=== PATIENT | female | born 1960 | race Asian ===

== ENCOUNTER 2017-03-01 13:12 | Emergency (ER) | payer OTHER ==
[~2017-03-01] VITALS: Ht 152.4 cm; Wt 80.0 kg
[2017-03-01 13:16] VITALS: Ht 152.4 cm; Wt 80.0 kg
[2017-03-01] MEDS ORDERED: ASPIRIN 325 MG TAB PO STA (17:38)
[2017-03-01] MEDS ORDERED: LIDOCAINE/MYLANTA 40 ML BTL PO STA (17:38)
[2017-03-01 18:31] LABS: BASOPHIL # 0.1 10^3/ul (0.0-0.1); BASOPHILS % 0.6 % (0.0-2.0); EOSINOPHILS # 0.2 10^3/ul (0.0-0.5); EOSINOPHILS % 2.1 % (0.0-7.0); HEMATOCRIT 38.9 % (37.0-47.0); HEMOGLOBIN 12.9 g/dl (12.0-16.0); LYMPHOCYTES # 4.5 10^3/ul (0.8-2.9); LYMPHOCYTES % 42.7 % (15.0-51.0); MEAN CORPUSCULAR HEMOGLOBIN 28.5 pg (29.0-33.0); MEAN CORPUSCULAR HGB CONC 33.2 g/dl (32.0-37.0); MEAN CORPUSCULAR VOLUME 86.1 fl (82.0-101.0); MEAN PLATELET VOLUME 9.8 fl (7.4-10.4); MONOCYTE # 0.7 10^3/ul (0.3-0.9); MONOCYTES % 6.3 % (0.0-11.0); NEUTROPHILS % 47.9 % (39.0-77.0); PLATELET COUNT 322 10^3/UL (140-415); RED BLOOD COUNT 4.52 10^6/ul (4.20-5.40); WHITE BLOOD COUNT 10.4 10^3/ul (4.8-10.8)
--- NOTE | 2017-03-01 18:34 | RADRPT ---
PROCEDURE: XR Chest. CLINICAL INDICATION: Chest pain. TECHNIQUE: Single frontal view. COMPARISON: None. FINDINGS: The lungs are clear. The heart size is normal. There is no pleural effusion. There is no pneumothorax. IMPRESSION: 1. Normal chest radiograph. RPTAT: QQ .Reed Perez MD, Date Time Electronically viewed and signed by .Reed Perez MD, on 03/01/2017 18:33 .R/
[2017-03-01] MEDS ORDERED: METF1000 PO (18:39)
[2017-03-01] MEDS ORDERED: LOSA100T7 PO (18:40)
[2017-03-01] MEDS ORDERED: METO-429 PO (18:40)
[2017-03-01] MEDS ORDERED: GLIP-95 PO (18:40)
[2017-03-01] MEDS ORDERED: ATOR20TA38 PO (18:41)
[2017-03-01] MEDS ORDERED: ATOR40TA68 PO (18:45)
[2017-03-01 18:46] LABS: ANION GAP 15 (8-16); BLOOD UREA NITROGEN 15 mg/dl (7-20); CALCIUM 9.5 mg/dl (8.4-10.2); CARBON DIOXIDE 24 mmol/L (21-31); CHLORIDE 100 mmol/L (97-110); CREATININE 0.88 mg/dl (0.44-1.00); GLUCOSE 155 mg/dl (70-220); SODIUM 135 mmol/L (135-144)
[2017-03-01] MEDS ORDERED: CLOP75TA27 PO (18:46)
[2017-03-01] MEDS ORDERED: AMLO-147 PO (18:46)
[2017-03-01] MEDS ORDERED: B CO1TAB12 PO (18:49)
[2017-03-01 18:57] LABS: B-TYPE NATRIURETIC PEPTIDE 42 PG/ML (0-125)
[2017-03-01 18:58] LABS: TROPONIN-I < 0.012 ng/ml (0.00-0.12)
[2017-03-01] MEDS ORDERED: ONDANSETRON 4 MG INJ IV STA (20:21)
[2017-03-01] MEDS ORDERED: SOD CHLORIDE 0.9% 1,000 ML IV ONE (20:30)
[2017-03-01 21:25] VITALS: BP 118/77; PULSE 75; RESP 16; TEMP 98.8
[2017-03-01] MEDS ORDERED: RANI150T9 PO (22:16)
[2017-03-01] MEDS ORDERED: ONDA4TAB11 PO (22:16)
--- NOTE | 2017-03-01 22:21 | ERD ---
ER Documentation Chief Complaint Date/Time DATE: 03/01/17 TIME: 22:17 Chief Complaint CP WITH DIZZINESS/NORIEGA X 1 HR, NO HX OF OH, +DM HPI This 56-year-old female presents with chest pain as well as some dizziness stated with no shortness of breath or nausea. She has a history of diabetes but no other cardiac abnormalities. Never had any cardiac issues. ROS All systems reviewed and are negative except as per history of present illness. Medications Home Meds Active Scripts Ondansetron (Zofran Odt) 4 Mg Tab.rapdis, 4 MG PO Q6 for NAUSEA AND/OR VOMITING , #10 Prov:PITA CAMACHO DO 03/01/17 Ranitidine Hcl* (Zantac*) 150 Mg Tablet, 150 MG PO BID Y for EPIGASTRIC PAIN, # 30 TAB Prov:PITA CAMACHO DO 03/01/17 Reported Medications B Complex with Vitamin C (Super B Complex-Vitamin C) 1 Each Tablet, 1 EACH PO DAILY, TAB 03/01/17 Clopidogrel Bisulfate (Clopidogrel) 75 Mg Tablet, 75 MG PO DAILY, #30 TAB 03/01/17 Amlodipine Besylate* (Amlodipine Besylate*) 10 Mg Tablet, 10 MG PO DAILY, #30 TAB 03/01/17 Atorvastatin* (Atorvastatin*) 40 Mg Tablet, 40 MG PO DAILY, #30 TAB 03/01/17 Losartan Potassium* (Losartan Potassium*) 100 Mg Tablet, 100 MG PO DAILY, TAB 03/01/17 Metoprolol Tartrate* (Lopressor*) 50 Mg Tab, 50 MG PO BID, #60 TAB 03/01/17 Glipizide* (Glipizide*) 10 Mg Tablet, 10 MG PO AC BREAKFAST DINNER, TAB 03/01/17 Metformin Hcl* (Metformin Hcl*) 1,000 Mg Tablet, 1000 MG PO WITH BREAKFAST DINNE , #60 TAB 03/01/17 Discontinued Reported Medications Atorvastatin Calcium* (Atorvastatin Calcium*) 20 Mg Tablet, 20 MG PO DAILY, #30 TAB 03/01/17 Allergies Allergies: Coded Allergies: No Known Allergy (Unverified , 03/01/17) PMhx/Soc History of Surgery: Yes (Hemerrhoid) Anesthesia Reaction: No Hx Neurological Disorder: No Hx Respiratory Disorders: No Hx Cardiac Disorders: Yes (HTN) Hx Psychiatric Problems: No Hx Miscellaneous Medical Probl: Yes (DM) Hx Alcohol Use: No Hx Substance Use: No Hx Tobacco Use: No Smoking Status: Never smoker Physical Exam Vitals Vital Signs Date Time Temp Pulse Resp B/P Pulse Ox O2 Delivery O2 Flow Rate FiO2 03/01/17 21:25 98.8 75 16 118/77 99 Room Air 03/01/17 19:06 0 03/01/17 13:16 98.1 81 20 188/93 99 Physical Exam Const: [] No distress Head: Atraumatic Eyes: Normal Conjunctiva ENT: Normal External Ears, Nose and Mouth. Neck: Full range of motion..~ No meningismus. Resp: Clear to auscultation bilaterally Cardio: Regular rate and rhythm, no murmurs Abd: Soft, non tender, non distended. Normal bowel sounds Skin: No petechiae or rashes Back: No midline or flank tenderness Ext: No cyanosis, or edema Neur: Awake and alertAnd oriented 3, no focal deficits Psych: Normal Mood and Affect Result Diagram: 03/01/17 1805 03/01/17 180 Results 24 hrs Laboratory Tests Test 03/01/17 18:05 03/01/17 20:25 White Blood Count 10.410^3/ul Red Blood Count 4.5210^6/ul Hemoglobin 12.9g/dl Hematocrit 38.9% Mean Corpuscular Volume 86.1fl Mean Corpuscular Hemoglobin 28.5pg Mean Corpuscular Hemoglobin Concent 33.2g/dl Red Cell Distribution Width 13.0% Platelet Count 69063^3/UL Mean Platelet Volume 9.8fl Neutrophils % 47.9% Lymphocytes % 42.7% Monocytes % 6.3% Eosinophils % 2.1% Basophils % 0.6% Nucleated Red Blood Cells % 0.0/100WBC Neutrophils # (Manual) 5.010^3/ul Lymphocytes # 4.510^3/ul Monocytes # 0.710^3/ul Eosinophils # 0.210^3/ul Basophils # 0.110^3/ul Nucleated Red Blood Cells # 0.010^3/ul Sodium Level 135mmol/L Potassium Level 4.0mmol/L Chloride Level 100mmol/L Carbon Dioxide Level 24mmol/L Anion Gap 15 Blood Urea Nitrogen 15mg/dl Creatinine 0.88mg/dl Glucose Level 155mg/dl Calcium Level 9.5mg/dl Troponin I < 0.012ng/ml < 0.012ng/ml B-Type Natriuretic Peptide 42PG/ML Current Medications Medications (Trade) Dose Ordered Sig/Hayley Route PRN Reason Start Time Stop Time Status Last Admin Dose Admin Aspirin (Aspirin) 325 mg ONCE STAT PO 03/01/17 17:38 03/01/17 17:40 DC 03/01/17 18:15 Miscellaneous Medication 40 ml 40 ml ONCE STAT PO 03/01/17 17:38 03/01/17 17:40 DC 03/01/17 18:15 Sodium Chloride (NS) 1,000 ml @ 1,000 mls/hr Q1H ONCE IV 03/01/17 20:30 03/01/17 21:29 DC 03/01/17 20:37 Ondansetron HCl (Zofran Inj) 4 mg ONCE STAT IV 03/01/17 20:21 03/01/17 20:23 DC 03/01/17 20:38 Procedures/MDM Atypical chest pain with no signs of cardiac ischemia. She was given aspirin and GI cocktail GI cocktail was completely relieved her chest pain. She developed nausea after the GI cocktail. She was given Zofran a liter of fluid which helped improve her lightheadedness and resolved her nausea completely. Second troponin was performed because her symptoms began only hour prior. 2 negative troponins and a nonischemic EKG make acute coronary syndrome very unlikely in this low risk patient. Going to discharge her with Zantac as well as Zofran and primary care follow-up with instructions to get an echo. Cardiogram as an outpatient EKG interpretation: Normal sinus rhythm, normal axis, no ST or T-wave changes concerning for acute ischemia, normal intervals. Normal EKG. senior human resources representative interpretation: Normal sinus rhythm arrhythmia Chest interpretation: See no acute process, see no vitamin Breen, pneumothorax , no pulmonary edema, no fracture Departure Diagnosis: Primary Impression: GERD (gastroesophageal reflux disease) Additional Impression: Chest pain Condition: Stable Patient Instructions: Chest Pain, Uncertain Cause Referrals: [facility] YOU HAVE RECEIVED A MEDICAL SCREENING EXAM AND THE RESULTS INDICATE THAT YOU DO NOT HAVE A CONDITION THAT REQUIRES URGENT TREATMENT IN THE EMERGENCY DEPARTMENT. FURTHER EVALUATION AND TREATMENT OF YOUR CONDITION CAN WAIT UNTIL YOU ARE SEEN IN YOUR DOCTORS OFFICE WITHIN THE NEXT 1-2 DAYS. IT IS YOUR RESPONSIBILITY TO MAKE AN APPOINTMENT FOR FOLOW-UP CARE. IF YOU HAVE A PRIMARY DOCTOR --you should call your primary doctor and schedule an appointment IF YOU DO NOT HAVE A PRIMARY DOCTOR YOU CAN CALL OUR PHYSICIAN REFERRAL HOTLINE AT IF YOU CAN NOT AFFORD TO SEE A PHYSICIAN YOU CAN CHOSE FROM THE FOLLOWING [facility] [address] [facility] [address] [facility] [address] [facility] [address] [facility] [address] [facility]. [facility]. [address] Additional Instructions: Call your primary care doctor TOMORROW for an appointment during the next 2-3 days. Get an appointment for an echocardiogram. See the doctor sooner or return here if your condition worsens before your appointment time. PITA CAMACHO DO Mar 01, 2017 22:21
== END 2017-03-01 21:25 | disposition home or self-care (01) ==
LOC: E/R 13:12
DX: K21.9 Gastro-esophageal reflux disease without esophagitis (principal); I10 Essential (primary) hypertension; E11.9 Type 2 diabetes mellitus without complications; R06.02 Shortness of breath; Z79.84 Long term (current) use of oral hypoglycemic drugs
CPT/HCPCS: 71010; 80048; 83880; 84484; 85025; 93005; 96361; 96374; J2405; J7030; Z7502; Z7610